=== PATIENT | male | born 1950 | race Caucasian/White ===

== ENCOUNTER 2023-09-14 06:06 | Inpatient (IN) ==
[2023-09-14 07:24] LABS: ABS Basophils 0.1 10^3/uL (0.0-0.1); ABS Eosinophils 0.1 10^3/uL (0.0-0.5); ABS Monocytes 1.4 10^3/uL (0.0-1.1); ABS Neutrophils 14.7 10^3/uL (1.5-7.6); ABS Nucleated RBC 0.03 10^3/ul; Eosinophil % 0.5 %; Hematocrit 42.2 % (38-53); Hemoglobin 14.4 g/dL (13.2-16.3); Lymphocyte % 5.6 %; Mean Corpuscular Hemoglobin 28.4 pg (27-33); Mean Corpuscular Volume 83.5 fL (80-97); Mean Platelet Volume 8.5 fL (7.5-11.2); Nucleated Red Blood Cells % 0.2 %/100WBC (0.0-0.8); Platelet Count 260 10^3/uL (150-450); Red Blood Count 5.06 10^6/uL (4.06-5.63); Red Cell Distribution Width 13.9 % (12-17); White Blood Count 17.3 10^3/uL (3.6-10.2)
[2023-09-14] MEDS ORDERED: Ondansetron 4 mg VIAL 2 MG/ML 2 ml VIAL IV PRN (07:24)
[2023-09-14] MEDS: Lactated Ringers 1000 ml BAG 1,000 ML IV ONE ×2 (07:30→08:41)
[2023-09-14] MEDS: Cefepime 2 GM in Dextrose 2 GM/50 ML BAG IV ONE (07:31)
[2023-09-14 07:39] LABS: C Reactive Protein 240.78 mg/L (<8.01); Calcium 9.4 mg/dL (8.6-10.3); Creatinine, Serum 1.25 mg/dL (0.67-1.17); Potassium 4.4 mmol/L (3.5-5.0); eGFR CKD-EPI 61.6 (>60)
[2023-09-14] MEDS ORDERED: Dextrose 50% Syringe 50 ml 25 GM/50 ML SYRINGE IV PUSH PRN (07:58)
[2023-09-14 08:25] LABS: INR 2.19 (0.83-1.13)
[2023-09-14] MEDS: Phytonadione Oral Solution 5 MG/25 ML UDC PO ONE (14:18)
[2023-09-14] MEDS: Cefepime 2 GM in Dextrose 2 GM/50 ML BAG IV SCH (20:42)
[2023-09-15 06:09] LABS: ABS Basophils 0.1 10^3/uL (0.0-0.1); ABS Eosinophils 0.1 10^3/uL (0.0-0.5); ABS Lymphocytes 1.2 10^3/uL (1.0-4.8); ABS Monocytes 1.1 10^3/uL (0.0-1.1); ABS Neutrophils 10.4 10^3/uL (1.5-7.6); ABS Nucleated RBC 0.01 10^3/ul; Eosinophil % 0.9 %; Hemoglobin 12.5 g/dL (13.2-16.3); Lymphocyte % 9.5 %; Mean Corpuscular Hemoglobin 28.6 pg (27-33); Mean Corpuscular Hgb Conc 34.6 g/dL (31-36); Mean Corpuscular Volume 82.4 fL (80-97); Mean Platelet Volume 8.1 fL (7.5-11.2); Nucleated Red Blood Cells % 0.1 %/100WBC (0.0-0.8); Platelet Count 250 10^3/uL (150-450); Red Blood Count 4.37 10^6/uL (4.06-5.63); Red Cell Distribution Width 14.3 % (12-17); White Blood Count 12.9 10^3/uL (3.6-10.2)
[2023-09-15 06:20] LABS: INR 1.63 (0.83-1.13)
[2023-09-15 06:47] LABS: Calcium 8.6 mg/dL (8.6-10.3); Creatinine, Serum 1.15 mg/dL (0.67-1.17); Potassium 4.2 mmol/L (3.5-5.0)
[2023-09-15] MEDS ORDERED: fentaNYL 100 mcg/2 ml 50 MCG/ML VIAL ONE (14:22)
[2023-09-15] MEDS ORDERED: Midazolam 2 mg/2 ml VIAL 1 mg/ml 2 ml VIAL (2 mg) ONE (14:23)
[2023-09-15 14:26] LABS: INR 1.52 (0.83-1.13)
[2023-09-15] MEDS ORDERED: Propofol 10 MG/ML 20 ML BTL ONE (14:45)
[2023-09-15] MEDS ORDERED: Lidocaine 2% PF 5 ML VIAL ONE (14:46)
[2023-09-15] MEDS ORDERED: Ondansetron 4 mg VIAL 2 MG/ML 2 ml VIAL ONE (15:02)
[2023-09-15] MEDS ORDERED: Dexamethasone IV 4 MG/ML VIAL 1 ml VIAL ONE (15:02)
[2023-09-15] MEDS ORDERED: Magnesium Hydroxide LIQ 30 ML UDC PO PRN (17:41)
[2023-09-15] MEDS ORDERED: Calcium Carb (TUMS) 500 mg CHEW TAB PO PRN (17:41)
[2023-09-15] MEDS ORDERED: Ondansetron ODT 4 mg TAB 4 MG TAB PO PRN (17:41)
[2023-09-15] MEDS ORDERED: Lactulose 30 ml UDC PO PRN (17:41)
[2023-09-15] MEDS: Enoxaparin 60 MG/0.6 ML SYR SUBCUT SCH ×2 (17:51→19:14)
[2023-09-15] MEDS: Enoxaparin 80 MG/0.8 ML SYR SUBCUT SCH (19:14)
[2023-09-15] MEDS: Magnesium Hydroxide LIQ 30 ML UDC PO SCH (20:41)
[2023-09-15] MEDS: Lactated Ringers 1000 ml BAG 1,000 ML IV SCH (21:35)
[2023-09-16] MEDS: Vitamin THERAPEUTIC TAB PO SCH (08:12)
[2023-09-16 08:58] LABS: ABS Basophils 0.1 10^3/uL (0.0-0.1); ABS Eosinophils 0.1 10^3/uL (0.0-0.5); ABS Lymphocytes 1.7 10^3/uL (1.0-4.8); ABS Monocytes 1.1 10^3/uL (0.0-1.1); ABS Neutrophils 10.9 10^3/uL (1.5-7.6); ABS Nucleated RBC 0.01 10^3/ul; Eosinophil % 0.5 %; Hematocrit 37.9 % (38-53); Hemoglobin 12.9 g/dL (13.2-16.3); Lymphocyte % 12.2 %; Mean Corpuscular Hemoglobin 28.1 pg (27-33); Mean Corpuscular Hgb Conc 34.1 g/dL (31-36); Mean Corpuscular Volume 82.6 fL (80-97); Mean Platelet Volume 8.5 fL (7.5-11.2); Nucleated Red Blood Cells % 0.1 %/100WBC (0.0-0.8); Platelet Count 257 10^3/uL (150-450); Red Blood Count 4.59 10^6/uL (4.06-5.63); Red Cell Distribution Width 13.9 % (12-17); White Blood Count 13.9 10^3/uL (3.6-10.2)
[2023-09-16 09:18] LABS: ALT 21 U/L (7-52); Albumin/Globulin Ratio 1.2 (1-3); Alkaline Phosphatase 78 U/L (35-149); Anion Gap 11 mmol/L (2-16); Blood Urea Nitrogen 18 mg/dL (6-24); C Reactive Protein 158.78 mg/L (<8.01); CO2 Carbon Dioxide 25 mmol/L (22-32); Calcium 8.5 mg/dL (8.6-10.3); Chloride 101 mmol/L (101-111); Creatinine, Serum 1.03 mg/dL (0.67-1.17); Globulin 2.5 g/dL (2-4); Glucose 164 mg/dL (70-100); Sodium 137 mmol/L (135-145); Total Bilirubin 0.7 mg/dL (0.2-1.0); Total Protein 5.5 g/dL (6.4-8.9); eGFR CKD-EPI 77.7 (>60)
[2023-09-16 12:30] LABS: Potassium Redraw 3.9 mmol/L (3.5-5.0)
[2023-09-16 18:37] LABS: INR 1.41 (0.83-1.13)
[2023-09-17 06:39] LABS: INR 1.4 (0.83-1.13)
[2023-09-17 09:47] VITALS: BP 120/69
== END 2023-09-17 14:15 | disposition home or self-care (01) | DRG 572 ==
LOC: EDHOLD 06:06 → ED 06:06 → MED 10:21
PROVIDERS: ADMIT Student in an Organized Health Care Education/Training Program; ATTEND Student in an Organized Health Care Education/Training Program